=== PATIENT | female | born 1985 | race Caucasian/White ===

== ENCOUNTER 2017-12-17 23:56 | Emergency (ER) | payer OTHER ==
[~2017-12-17] VITALS: Ht 182.9 cm; Wt 110.7 kg
--- NOTE | 2017-12-18 00:32 | PHYS DOC ---
Past History Past Medical History: No Pertinent History Past Surgical History: Tonsillectomy Additional Past Surgical Histo: arthroscopy Alcohol Use: None Drug Use: None Adult General Chief Complaint Chief Complaint: ABDOMINAL PAIN IN HPI HPI This is a pleasant 32-year-old female who is a primigravida's female presenting to the emergency department at approximately 12 weeks by last menstrual period. She presents with left lower quadrant abdominal pain that is sharp shooting nonradiating pain without alleviating factors. She has associated nausea with nonbilious nonbloody vomiting. She denies any vaginal bleeding or recent trauma. Review of systems is negative for chest pain shortness breath fevers chills. She denies diarrhea or constipation. All other review of systems is negative unless otherwise noted in history of present illness. ED course: 32-year-old female presenting the emergency department today with nausea vomiting of lower quadrant abdominal pain and . Afebrile with normal blood pressure. Normal heart rate. On examination she is well-appearing. Mild tenderness left lower quadrant without rebound tenderness or guarding. Negative McBurney's point. Negative Tobar sign. The remainder the exam is unremarkable. Blood work obtained along with ultrasound. Ultrasound shows intrauterine . Patient is Rh+. Mild amount of bacteria in the urine so we will give her Keflex for asymptomatic bacteriuria. Patient will follow-up with [facility] in 2-3 days.The patient has been examined and was not found to have an emergency medical condition. The patient was then discharged home in stable condition. They were to return if their symptoms worsened or if they were concerned for any reason. Dwbz-ad-lept discharge instructions and return precautions were given. Patient's questions were answered to their satisfaction. Patient is comfortable with plan. Review of Systems Review of Systems SEE ABOVE. Current Medications Current Medications Current Medications Medications (Trade) Dose Ordered Sig/Michael Start Time Stop Time Status Last Admin Dose Admin Fentanyl Citrate (Fentanyl 2ml Vial) 25 mcg PRN Q30MIN PRN 12/18/17 00:30 UNV Metoclopramide HCl (Reglan Vial) 10 mg 1X ONCE 12/18/17 00:30 12/18/17 00:31 UNV Sodium Chloride 1,000 ml @ 1,000 mls/hr 1X ONCE 12/18/17 00:30 12/18/17 01:29 UNV Physical Exam Physical Exam SEE ABOVE Constitutional: Well developed, well nourished, no acute distress, non-toxic appearance. [] HENT: Normocephalic, atraumatic, bilateral external ears normal, oropharynx moist, no oral exudates, nose normal. [] Eyes: PERRLA, EOMI, conjunctiva normal, no discharge. [] Neck: Normal range of motion, no tenderness, supple, no stridor. [] Cardiovascular:Heart rate regular rhythm, no murmur [] Lungs & Thorax: Bilateral breath sounds clear to auscultation [] Abdomen: Bowel sounds normal, soft, no masses, no pulsatile masses. [] Skin: Warm, dry, no erythema, no rash. [] Back: No tenderness, no CVA tenderness. [] Extremities: No tenderness, no cyanosis, no clubbing, ROM intact, no edema. [] Neurologic: Alert and oriented X 3, normal motor function, normal sensory function, no focal deficits noted. [] Psychologic: Affect normal, judgement normal, mood normal. [] Current Patient Data Vital Signs Vital Signs Date Time Temp Pulse Resp B/P (MAP) Pulse Ox O2 Delivery O2 Flow Rate FiO2 12/18/17 00:22 98.2 61 20 98 Room Air EKG EKG [] Radiology/Procedures Radiology/Procedures [] Course & Med Decision Making Course & Med Decision Making Pertinent Labs and Imaging studies reviewed. (See chart for details) [] Dragon Disclaimer Dragon Disclaimer This electronic medical record was generated, in whole or in part, using a voice recognition dictation system. Departure Departure: Impression: Primary Impression: Abdominal pain affecting Additional Impression: Asymptomatic bacteriuria during Disposition: 01 HOME, SELF-CARE Condition: STABLE Patient Instructions: Abdominal Pain (Nonspecific) Additional Instructions: Thank you for allowing us to participate in your care today. Followup with your OB in 3 days. Call your Primary Doctor tomorrow and inform them of your visit today. If you do not have a primary care provider you can ask for a list of our primary care providers. Return to the emergency department you have any new or concerning findings. This should be evaluated by the primary care physician and any necessary consulting services for continued management within a few days after discharge. Return to emergency room if you have any new or concerning symptoms including but not limited to fever, chills, nausea, vomiting, intractable pain, any new rashes, chest pain, shortness of air, uncontrolled bleeding, difficulty breathing, and/or vision loss. If at any time, you are having difficulty getting into your primary care doctor or a specialist, return to the emergency department. Scripts Cephalexin (KEFLEX) 250 Mg Capsule 1 CAP PO QID for 5 Days, #20 CAP Prov: MAGED ANGULO MD 12/18/17 Problem Qualifiers MAGED ANGULO MD Dec 18, 2017 00:32
[2017-12-18 00:40] LABS: BILIRUBIN,URINE NEG (NEG); CLARITY,URINE CLEAR; COLOR,URINE YELLOW; GLUCOSE,URINE NEG (NEG)
[2017-12-18 00:41] LABS: BACTERIA,URINE FEW /HPF (0-FEW); NITRITE,URINE NEG (NEG); RBC,URINE OCC /HPF (0-2); SQUAMOUS EPITHELIAL CELL,UR FEW /LPF; UROBILINOGEN,URINE 0.2 mg/dL (0.2 mg/dL); WBC,URINE RARE /HPF (0-4)
[2017-12-18 01:16] LABS: BASO # 0.1 x10^3/uL (0.0-0.2); BASO % 1 % (0-3); EOS # 0.3 x10^3/uL (0.0-0.7); EOS % 3 % (0-3); HEMATOCRIT 36.9 % (36.0-47.0); HEMOGLOBIN 12.5 g/dL (12.0-15.5); LYMPH # 3.1 x10^3/uL (1.0-4.8); LYMPH % 28 % (24-48); MEAN CORPUSCULAR HEMOGLOBIN 30 pg (25-35); MEAN CORPUSCULAR HGB CONC 34 g/dL (31-37); MEAN CORPUSCULAR VOLUME 89 fL (79-100); MONO # 0.6 x10^3/uL (0.0-1.1); MONO % 6 % (0-9); NEUT % 64 % (31-73); PLATELET COUNT 227 x10^3/uL (140-400); RED BLOOD COUNT 4.17 x10^6/uL (3.50-5.40); RED CELL DISTRIBUTION WIDTH 13.4 % (11.5-14.5); WHITE BLOOD COUNT 11.1 x10^3/uL (4.0-11.0)
[2017-12-18 01:35] LABS: ALK PHOS 51 U/L (46-116); ALT (SGPT) 24 U/L (14-59); ANION GAP 10 (6-14); AST (SGOT) 17 U/L (15-37); BLOOD UREA NITROGEN 11 mg/dL (7-20); CALCIUM 8.9 mg/dL (8.5-10.1); CARBON DIOXIDE 25 mmol/L (21-32); CHLORIDE 102 mmol/L (98-107); CREATININE 0.6 mg/dL (0.6-1.0); DIRECT BILIRUBIN < 0.1 mg/dL (0.0-0.2); GFR 117.4; GLUCOSE 84 mg/dL (70-99); POTASSIUM 3.6 mmol/L (3.5-5.1); SODIUM 137 mmol/L (136-145); TOTAL BILIRUBIN 0.2 mg/dL (0.2-1.0); TOTAL PROTEIN 6.8 g/dL (6.4-8.2)
[2017-12-18] MEDS ORDERED: IV NORMAL SALINE 1,000ML 1,000 ML IV ONE (02:00)
[2017-12-18] MEDS ORDERED: METOCLOPRAMIDE HCL 10 MG/2 ML VIAL. IV ONE (02:00)
--- NOTE | 2017-12-18 02:20 | RAD ---
Obstetric ultrasound less than 14 weeks: Reason for examination: Left lower quadrant pain for 3 days. Cervix length is normal at 3.3 cm. The uterus measures 11.9 x 9.0 x 9.2 cm in greatest dimension. Single viable intrauterine gestation is present. The placenta appears to be in the posterior wall with no previa or abruption evident. Cardiac activity is seen with a cardiac rate of 162 bpm. [place]-rump length is estimated at 6 mm which corresponds to gestational age of 12 weeks 4 days with an estimated date of confinement of 06/28/2018. This corresponds adequately with clinical dates. The right ovary measures 3.3 x 2.8 x 2.5 cm in greatest dimensions and contains a small 1.9 x 1.3 x 1.5 cm corpus luteal cyst. The left ovary measures 1 3.6 x 3.0 x 2.2 cm in greatest dimension with no focal masses. No free fluid is seen. IMPRESSION: Single viable intrauterine gestation with a mean gestational age estimated at 12 weeks 4 days and estimated date of confinement of 06/28/2018. 1.9 x 1.3 x 1.5 cm corpus luteal cyst at the right ovary. Electronically signed by: Sheila Villarreal MD (12/18/2017 2:17 AM) [facility]
[2017-12-18 02:21] VITALS: BP 97/34
[2017-12-18] MEDS ORDERED: CEPH-263 PO (02:25)
== END 2017-12-18 03:22 | disposition home or self-care (01) ==
LOC: ER 23:56
DX: O26.891 Other specified pregnancy related conditions, first trimester (principal); O23.91 Unspecified genitourinary tract infection in pregnancy, first trimester; R10.32 Left lower quadrant pain; R82.71 Bacteriuria; Z3A.12 12 weeks gestation of pregnancy
CPT/HCPCS: 36415; 76801; 80048; 80076; 81001; 84702; 85025; 86901; 96361; 96374; 96375; 99285; J2765; J3010; J7030